=== PATIENT | female | born 1950 | race Caucasian/White ===

== ENCOUNTER → 2023-08-27 18:32 | Outpatient (REF) | payer MEDICARE, OTHER, SELFPAY | LOC: PAVMRI 18:32 | PROVIDERS: ATTENDING PHYSICIAN Specialist; FAMILY PHYSICIAN Student in an Organized Health Care Education/Training Program | DX: M25.562 Pain in left knee (principal) | CPT/HCPCS: 73721 ==

== ENCOUNTER → 2023-10-12 09:53 | Outpatient (REF) | payer MEDICARE, OTHER, SELFPAY | LOC: HWRAD 09:53 | PROVIDERS: ATTENDING PHYSICIAN Obstetrics & Gynecology Gynecology; FAMILY PHYSICIAN Student in an Organized Health Care Education/Training Program | DX: N95.0 Postmenopausal bleeding (principal) | CPT/HCPCS: 76830; 76856 ==

== ENCOUNTER → 2024-05-23 13:52 | Outpatient (REF) | payer MEDICARE, OTHER, SELFPAY | LOC: RAD 13:52 | PROVIDERS: ATTENDING PHYSICIAN Student in an Organized Health Care Education/Training Program; FAMILY PHYSICIAN Student in an Organized Health Care Education/Training Program; REFERRING PHYSICIAN Internal Medicine Rheumatology | DX: R05.3 Chronic cough (principal) | CPT/HCPCS: 71046 ==

== ENCOUNTER → 2024-06-14 13:05 | Outpatient (REF) | payer MEDICARE, OTHER, SELFPAY | LOC: RAD 13:05 | PROVIDERS: ATTENDING PHYSICIAN Internal Medicine Rheumatology; FAMILY PHYSICIAN Student in an Organized Health Care Education/Training Program; REFERRING PHYSICIAN Internal Medicine Rheumatology | DX: M15.9 Polyosteoarthritis, unspecified (principal) | CPT/HCPCS: 73130 ==

== ENCOUNTER → 2024-08-16 12:58 | Outpatient (REF) | payer MEDICARE, OTHER, SELFPAY | LOC: RAD 12:58 | PROVIDERS: ATTENDING PHYSICIAN Student in an Organized Health Care Education/Training Program; FAMILY PHYSICIAN Student in an Organized Health Care Education/Training Program | DX: E04.1 Nontoxic single thyroid nodule (principal) | CPT/HCPCS: 76536 ==

== ENCOUNTER 2024-11-11 06:13 | Emergency (ER) | payer MEDICARE, OTHER, SELFPAY ==
[2024-11-11 06:20] VITALS: BP 125/65
[2024-11-11 07:23] VITALS: BP 105/76; BMI 20.8
--- NOTE | 2024-11-11 07:44 | ED.GENMED ---
History of Present Illness
General
Chief Complaint: Cold/Flu/URI Symptoms
Source: patient
Exam Limitations: none
Time Seen by Provider: 11/11/24 06:55
History of Present Illness
History of Present Illness:
Patient started about 10 days ago with flulike symptoms. had similar symptoms. However cough and congestion became worse in the last 2 to 3 days.
Past History
Past History
ED Past Medical History: Other (Murmur, Hemorrhoids, Scoliosis,); Negative Asthma, HTN, Hypercholesterolemia or NIDDM
ED Past Surgical History: Other (L mastectomy)
Social History
Tobacco: Former smoker
Alcohol: Occasional
Drug: Marijuana
Personal:
Living: with family
Review of Systems
Review of Systems
All Other Systems: Not applicable
Respiratory: Denies hemoptysis
Cardiac: Denies chest pain or syncope
Phy Exam
Physical Exam
Physical Exam:
GENERAL: Alert and oriented in no apparent distress
EYE: Orbits normal.
NECK: Supple, no significant adenopathy.
ENT: Pharynx with mild diffuse erythema
CARDIAC: Regular rate and rhythm without any obvious murmurs.
LUNGS: Clear breath sounds,normal. Somewhat coarse cough at times. Scoliosis
ABDOMEN: Soft, without focal tenderness or distention
NEUROLOGICAL: Alert and oriented , grossly non-focal
SKIN: Warm and dry, no rash or lesion, no discoloration, skin intact.
MUSCULOSKELETAL: No edema,no deformity.Good color
PSYCH: Normal and appropriate interaction.
Course
Orders/Labs/Results
Orders:
Orders
11/11/24 06:39
COVID-19 Antigen Urgent
Source: Nasal Swab
Influenza A+B Rapid Molecular Urgent
MONTSERRAT Source: Nasal Swab
Specimen Description:
11/11/24 07:14
CXR2 [CR Chest - 2 Views ] Urgent
Comment:
Reason For Exam: cough
11/11/24 07:43
Amoxicillin [Amoxil] 500 mg PO NOW STA
11/11/24 07:50
Rapid Strep Group A Urgent
MONTSERRAT Source: Throat/Pharynx
Specimen Description:
Date Specimen was Collected: 11/11/24
Time Specimen was Collected: 07:48
Throat Culture [Throat Culture, Comprehensive] Urgent
MONTSERRAT Source: Throat/Pharynx
Specimen Description:
Date Specimen was Collected: 11/11/24
Time Specimen was Collected: 07:48
Vital Signs
Initial and Last Documented VS:
Initial Vital Signs
Temp Pulse Resp BP Pulse Ox
98.4 F 88 18 125/65 95
11/11/24 06:20 11/11/24 06:20 11/11/24 06:20 11/11/24 06:20 11/11/24 06:20
Last Documented Vital Signs
Temp Pulse Resp BP Pulse Ox
98.4 F 62 16 105/76 97
11/11/24 06:20 11/11/24 07:23 11/11/24 07:23 11/11/24 07:23 11/11/24 07:23
MDM/Problems Addressed
Differential Diagnosis Includes:
Patient in no respiratory distress. Nontoxic. Influenza positive. Chest x-ray negative. However with symptoms getting worse would consider secondary bacterial issue. Discussed doxycycline but patient would prefer amoxicillin. Not unreasonable.
*Radiology
Radiology exam reviewed: preliminary read by ED provider (Negative)
*Pulse Oximetry
Patient hypoxic: no
*Critical Care Note
Total Time (30-74mins, 75-104mins- exclusive of procedures): Not Applicable
ED Attending Note
-
Portions of this chart may have been created with voice recognition software.� Occasional wrong word or��sound alike� substitutions may have occurred due to the inherent limitations of voice recognition software.
Discharge Plan
Departure
Patient Disposition: Home (Routine Discharge)
Date of Disposition: 11/11/24
Time of Disposition: 07:46
Patient with high blood pressure during this ER visit?: No
Discharge Problem:
Influenza, Bronchitis
Instructions: Acute Bronchitis, Adult (DC), Flu in adults - ED discharge instructions
Prescriptions:
New
amoxicillin 500 mg capsule
500 mg PO TID 10 Days Qty: 30 0RF
Referrals:
Kinga Fraser MD [Family Provider, Internal Medicine] - Follow up in 2-3 days
Activity Restrictions/Additional Instructions:
The prescription was sent to your pharmacy
Stay well-hydrated Tylenol or Motrin for aches
Interventions
Interventions:
*Risk Screen - Suicide Last Done: 11/11/24 06:20
*General Assessment Last Done: 11/11/24 07:23
*Neglect/Abuse Screening Last Done: 11/11/24 07:23
*ED- Fall Risk Assessment Last Done: 11/11/24 07:23
*ED COVID-19 Vaccine History Last Done: 11/11/24 07:23
*Nursing Disposition Last Done: 11/11/24 07:56
ED- Pulmonary Assessment Last Done: 11/11/24 07:23
Discharge Date and Time
Discharge Date/Time: 11/11/24 08:14
Print Language: SLOVENIAN
[2024-11-11 07:54] LABS: COVID-19 Antigen Negative (Negative)
[2024-11-11] MEDS: AMOXIL 500 MG PO (07:54)
== END 2024-11-11 08:14 | disposition home or self-care (01) ==
LOC: EMR 06:13
PROVIDERS: Student in an Organized Health Care Education/Training Program; EMERGENCY PHYSICIAN Emergency Medicine; FAMILY PHYSICIAN Student in an Organized Health Care Education/Training Program
DX: J11.1 Influenza due to unidentified influenza virus with other respiratory manifestations (principal); J40 Bronchitis, not specified as acute or chronic; Z87.891 Personal history of nicotine dependence; Z90.12 Acquired absence of left breast and nipple
CPT/HCPCS: 99284; 71046; 87070; 87502; 87811; 87880

== ENCOUNTER → 2025-05-04 13:49 | Outpatient (REF) | payer MEDICARE, OTHER, SELFPAY | LOC: HWRAD 13:49 | PROVIDERS: ATTENDING PHYSICIAN Internal Medicine Rheumatology; FAMILY PHYSICIAN Student in an Organized Health Care Education/Training Program | DX: M81.0 Age-related osteoporosis without current pathological fracture (principal) | CPT/HCPCS: 77080 ==